=== PATIENT | female | born 1950 | race Caucasian/White ===

== ENCOUNTER 2022-10-24 09:36 | Outpatient (CLI) | payer OTHER ==
[2022-10-24] MEDS ORDERED: Iopamidol 370 76% 100 ML VIAL ONE (10:07)
== END 2022-10-24 09:37 | disposition home or self-care (01) ==
LOC: CSHCT 09:36
PROVIDERS: ATTEND Specialist
DX: I65.29 Occlusion and stenosis of unspecified carotid artery (principal); I65.23 Occlusion and stenosis of bilateral carotid arteries
CPT/HCPCS: 70498; 82565